=== PATIENT | female | born 2000 | race Caucasian/White ===

== ENCOUNTER → 2022-12-15 13:06 | Outpatient (CLI) | payer BC, SELFPAY ==
--- NOTE | ~2022-12-15 | US_ITS ---
EXAMINATION: US transvaginal DATE: 12/15/2022 13:35 INDICATION: Pelvic pain. TECHNIQUE: Multiple transvaginal sonographic images of the pelvis were obtained. COMPARISON: None. FINDINGS: The uterus measures 6.5 x 3.2 x 3.9 cm. There is no free fluid in the pelvis. The endometrial complex measures 4 mm in thickness. There is an intrauterine device in expected position. The right ovary me asures 2.7 x 2.2 x 3.0 cm. The left ovary measures 4.5 x 3.3 x 3.1 cm. There is normal vascular flow in the ovaries. IMPRESSION: 1. Intrauterine device in expected position. Reviewed, dictated and finalized at location A.
== END ==
PROVIDERS: PCP Nurse Practitioner Family; Visit Provider Advanced Practice Midwife
DX: T83.32XA Displacement of intrauterine contraceptive device, initial encounter (principal)
CPT/HCPCS: 76830